=== PATIENT | male | born 1980 | race Two or more races ===

== ENCOUNTER 2024-06-03 04:33 | Emergency (ER) | payer BC, SELFPAY ==
--- NOTE | ~2024-06-03 | XR_ITS ---
EXAMINATION: XR chest 1V portable 06/03/2024 05:38 INDICATION: Left facial droop PROCEDURE: AP portable chest COMPARISON: No prior studies for comparison. FINDINGS: The lungs are clear. The cardiomediastinal silhouette is within normal limits. There are no pleural effusions. There is no pneumothorax suspected. IMPRESSION: 1: NO ACUTE CARDIOPULMONARY DISEASE. Reviewed, dictated and finalized at location B.
--- NOTE | ~2024-06-03 | CT_ITS ---
EXAMINATION: CT BRAIN W/O DATE: 06/03/2024 05:15 INDICATION: Left-sided facial weakness TECHNIQUE: Computed tomography (CT) of the head was performed without intravenous contrast. The dose- length product was 605.33 mGy-cm. Automated exposure control and iterative reconstruction technique w ere employed. COMPARISON: No prior studies for comparison. FINDINGS: Normal brain parenchymal volume for age. Normal floyd-white differentiation. No acute intrac ranial hemorrhage, infarction, mass or mass effect. No ventriculomegaly or midline shift. Midline sagittal images demonstrate a normal corpus callosum, c raniovertebral junction and sella turcica. Basilar cisterns are patent. There is mucosal thickening of the maxillary, ethmoid sinuses, consistent with sinusitis. Mastoids ar e pneumatized. No depressed skull fractures. IMPRESSION: 1. No acute intracranial abnormality. 2: Moderate sinusitis. Reviewed, dictated and finalized at location B.
[2024-06-03 04:34] VITALS: BP 155/104; PULSE 94; RESP 16; TEMP 36.8; O2SAT 100
--- NOTE | 2024-06-03 04:45 | ECG_ITS ---
Test Date: 2024-06-03 04:51:46 Measurements Intervals [place] Rate: 98 P: 72 MT: 140 QRS: 83 QRSD: 106 T: 66 QT: 346 QTc: 443 Interpretive Statements SINUS RHYTHM DELAYED PRECORDIAL R/S TRANSITION BORDERLINE ECG No previous ECG available for comparison Electronically Signed On 06-03-2024 07:46:18 CDT by Garfield Wellington D.O.
[2024-06-03 04:48] VITALS: BP 155/104; PULSE 94; RESP 16
[2024-06-03 05:09] LABS: Basophils Percent Auto 0.6 % (0.2-1.2); Eosinophils Absolute Auto 0.1 K/mm3 (0-0.3); Eosinophils Percent Auto 1.4 % (0-4.4); Hematocrit 38.1 % (42.0-52.0); Hemoglobin 13.3 g/dL (14.0-18.0); Immature Granulocyte Absolute 0.02 K/mm3 (0.00-0.031); Immature Granulocyte Percent A 0.3 % (0-0.5); Lymphocytes Absolute Auto 2.79 K/mm3 (0.9-3.2); Lymphocytes Percent Auto 43.5 % (18.3-44.2); Mean Corpuscular HGB Conc 34.9 g/dl (32-36); Mean Corpuscular Hemoglobin 31.7 pg (26-34); Mean Corpuscular Volume 90.7 fl (80-100); Mean Platelet Volume 9.9 fl (7.4-10.4); Monocytes Absolute Auto 0.4 K/mm3 (0.1-0.6); Monocytes Percent Auto 5.5 % (2.6-8.5); Neutrophils Absolute Auto 3.1 K/mm3 (1.3-6.7); Neutrophils Percent Auto 48.7 % (45.5-73.1); Platelet Count Result 248 k/mm3 (150-375); Red Cell Distribution Width 12.7 % (11.5-14.5); White Blood Count 6.4 K/mm3 (4.5-10.0)
[2024-06-03 05:44] LABS: Alanine Aminotransferase 19 U/L (6-50); Albumin Level 4.4 g/dL (3.5-5.1); Alkaline Phosphatase 98 U/L (38-126); Anion Gap 9 mmol/L (4-12); Aspartate Amino Transferase 26 U/L (17-59); Bilirubin,Total 0.6 mg/dL (0.2-1.3); Blood Urea Nitrogen 19 mg/dL (9-20); Calcium 9.2 mg/dL (8.4-10.2); Carbon Dioxide 25 mmol/L (22-30); Chloride 99 mmol/L (98-107); Estimated CRCL calculation 98 ml/min; Estimated Glomerular Filt Rate > 60; Glucose 219 mg/dL (65-110); INR 0.9; Potassium 3.8 mmol/L (3.4-5.0); Prothrombin Time 12.6 Seconds (11.1-14.7); Sodium 133 mmol/L (137-145)
[2024-06-03 05:55] LABS: Troponin I < 0.012 ng/mL (0.000-0.034)
--- NOTE | 2024-06-03 06:58 | ED.NEUROSD ---
HPI - Neuro Symptoms/Deficit General Chief Complaint: Neuro Symptoms/Deficit Stated Complaint: 24 hours left sided weakness Time Seen by Provider: 06/03/24 06:48 History of Present Illness HPI Narrative: 43-year-old male presenting to the emergency department for evaluation of some left-sided facial weakness that just started yesterday. Patient denies any recent coughs colds or fevers. Patient denies any associated numbness of his arms or legs. Patient denies any other neurologic changes other than the facial droop on the left side. Patient denies any significant past medical history. Related Data Allergies Allergy/AdvReac Type Severity Reaction Status Date / Time NKDA Allergy Mild Uncoded 11/27/04 09:02 Review of Systems Review of Systems: All systems reviewed & are unremarkable except as noted in HPI and below Exam Narrative: APPEARANCE: Well appearing, no pain, no distress, well-nourished. HEAD: normocephalic, atraumatic. EYES: PERRLA/EOMI, conjunctivae clear. NOSE: Normal no drainage EARS:TMS clear with good light reflex. THROAT: Pharynx clear, no exudate. NECK: Supple. No adenopathy, no masses. RESPIRATORY: Airway patent, respirations nonlabored. Clear to auscultation bilaterally, no rales, rhonchi, wheezing. CARDIOVASCULAR: Regular rate and rhythm without murmurs rubs or gallops. ABDOMINAL: Soft, nontender, nondistended, normal bowel sounds MUSCULOSKELETAL: Moves all extremities. Strength/ROM intact, No edema, No calf tenderness. NEURO: Alert. Left-sided facial droop involving the forehead. No other neurologic abnormality. SKIN: Warm, dry. Normal Color Course Course Emergency Course: Patient was treated for Castañeda's palsy. Vital Signs Vital signs: Vital Signs Temperature 98.2 F 06/03/24 04:34 Pulse Rate 94 06/03/24 04:34 Respiratory Rate 16 06/03/24 04:34 Blood Pressure 155/104 H 06/03/24 04:34 Pulse Oximetry 100 06/03/24 04:34 Oxygen Delivery Room Air 06/03/24 04:34 Temperature 98.0 F 06/03/24 08:03 Pulse Rate 105 H 06/03/24 08:03 Respiratory Rate 16 06/03/24 08:03 Blood Pressure 149/98 H 06/03/24 08:03 Pulse Oximetry 99 06/03/24 08:03 Oxygen Delivery Room Air 06/03/24 04:34 MDM - Neuro Symptoms/Deficit MDM Narrative Medical decision making narrative: 43-year-old male presenting to the emergency department for evaluation for left facial droop that started yesterday. Patient denies any other focal neurologic deficit. Patient is afebrile with no leukocytosis and a stable hemoglobin of 13.3. Patient has a normal INR with no acute abnormalities on his CMP. Head CT shows no acute intracranial abnormality and chest x-ray showed no acute cardiopulmonary disease. 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 Patient was started on valacyclovir and prednisone in the emergency department. Patient was discharged home with prescriptions for valacyclovir and prednisone. Patient is also provided an eye patch and instructions to help protect his cornea. Patient was also encouraged to have close follow-up with his primary care physician and with Neurology. Differential Diagnosis Differential diagnosis: Likely subarachnoid hemorrhage, peripheral neuropathy, cerebrovascular accident, multiple sclerosis and transient cerebral ischemia Lab Data Attestation: I reviewed the patient's lab results. 06/03/24 05:01 06/03/24 05:25 Labs: Lab Results 06/03/24 06/03/24 Range/Units 05:01 05:25 WBC 6.4 (4.5-10.0) K/mm3 RBC 4.20 L (4.6-6.20) M/mm3 Hgb 13.3 L (14.0-18.0) g/dL Hct 38.1 L (42.0-52.0) % MCV 90.7 (80-100) fl MCH 31.7 (26-34) pg MCHC 34.9 (32-36) g/dl RDW 12.7 (11.5-14.5) % Plt Count 248 (150-375) k/mm3 MPV 9.9 (7.4-10.4) fl Immature Gran % (Auto) 0.3 (0-0.5) % Neut % (Auto) 48.7 (45.5-73.1) % Lymph % (Auto) 43.5 (18.3-44.2) % [place] % (Aut
[2024-06-03] MEDS: predniSONE 20 MG TABLET 60 MG PO (07:52)
[2024-06-03] MEDS: valACYclovir HCL 500 MG TABLET 1000 MG PO (07:53)
--- NOTE | 2024-06-03 08:01 | PC.NURSE ---
Assumed care of pt. Pt resting with reg resp.Noted right facial drooping. Pt denies any c/o pain at this time.
[2024-06-03 08:03] VITALS: BP 149/98; PULSE 105; RESP 16; TEMP 36.7; O2SAT 99
== END 2024-06-03 08:05 | disposition home or self-care (01) ==
PROVIDERS: Student in an Organized Health Care Education/Training Program; Emergency Provider Emergency Medicine
DX: G51.0 Bell's palsy (principal)
CPT/HCPCS: 36415; 70450; 71045; 80053; 84484; 85025; 85610; 85730; 93005; 99284; A9270; J7512